=== PATIENT | female | born 1995 | race Caucasian/White ===

== ENCOUNTER 2023-11-25 22:31 | Emergency (ER) | payer SELFPAY ==
[~2023-11-25] VITALS: Ht 142.2 cm; Wt 63.2 kg
[2023-11-25 22:52] VITALS: O2SAT 100
[2023-11-25] MEDS: ACETAMINOPHEN 325MG TABLET PO ONE (23:21)
[2023-11-25] MEDS: SODIUM CHLORIDE 0.9% 1000ML BAG (SEPSIS BOLUS) IV ONE (23:22)
[2023-11-25 23:40] LABS: BASOPHILS % 0.4 % (0.0-2.0); EOSINOPHILS % 0.1 % (0.0-5.0); HEMATOCRIT. 37.5 % (36.0-48.0); HEMOGLOBIN. 12.6 g/dL (12.0-16.0); LYMPHOCYTES % 16.7 % (20.0-50.0); MEAN CORPUSCULAR HEMOGLOBIN 28.1 pg (28.0-32.0); MEAN CORPUSCULAR HGB CONC 33.5 g/dL (31.0-37.0); MEAN CORPUSCULAR VOLUME 83.9 fL (81.0-99.0); MONOCYTES % 9.2 % (2.0-8.0); NEUTROPHILS % 73.6 % (40.0-76.0); PLATELET 265 x1000/uL (130-400); RED BLOOD CELL COUNT 4.47 mill/uL (4.2-5.4); RED CELL DISTRIBUTION WIDTH 12.8 % (11.6-14.6); WHITE BLOOD COUNT 8.7 x1000/uL (4.5-11.0)
[2023-11-25 23:49] LABS: PROTHROMBIN TIME 10.9 sec (9.6-11.0)
[2023-11-25 23:50] LABS: CLARITY URINE CLEAR (CLEAR); COLOR URINE YELLOW (YELLOW); GLUCOSE URINE NEGATIVE (NEGATIVE); KETONES URINE 1+ (NEGATIVE); LEUKOCYTE ESTERASE URINE TRACE (NEGATIVE); NITRITE URINE NEGATIVE (NEGATIVE); OCCULT BLOOD URINE NEGATIVE (NEGATIVE); PH URINE 8.5 (4.5-8.0); PROTEIN URINE NEGATIVE (NEGATIVE); SPECIFIC GRAVITY URINE 1.012 (1.005-1.030)
[2023-11-25 23:57] LABS: ALANINE AMINOTRANSFERASE 45 IU/L (10-49); ALBUMIN 4.7 g/dL (3.2-4.8); ASPARTATE AMINOTRANSFERASE 59 IU/L (<34); BILIRUBIN TOTAL 0.4 mg/dL (0.1-1.0); CARBON DIOXIDE 18 mEq/L (21-32); CHLORIDE 103 mEq/L (98-107); CREATINE KINASE 90 IU/L (34-145); CREATININE 0.6 mg/dL (0.6-1.0); GLUCOSE 91 mg/dL (70-105); POTASSIUM 3.8 mEq/L (3.5-5.1); PROTEIN TOTAL 7.6 g/dL (6.0-8.3); SODIUM 133 mEq/L (136-145)
[2023-11-26 00:01] LABS: TROPONIN I HIGH SENSITIVITY < 4 ng/L (3.0-34); UREA NITROGEN BLOOD < 5 mg/dL (9-23)
[2023-11-26 00:37] LABS: ERYTHROCYTE SEDIMENTATION RATE 25 mm/hr (0-20)
[2023-11-26 00:51] LABS: SQUAMOUS EPITHELIAL CELL URINE FEW /lpf (RARE/1+)
[2023-11-26 00:58] LABS: RBC URINE 0-2 /hpf (0-2)
[2023-11-26 01:10] LABS: BACTERIA URINE NONE SEEN
[2023-11-26 01:11] VITALS: BP 106/56; PULSE 113; RESP 21; TEMP 101.3
[2023-11-26] MEDS: OSELTAMIVIR 75MG CAPSULE PO ONE (01:25)
[2023-11-26] MEDS ORDERED: TAM75 MT (02:02)
[2023-11-26] MEDS ORDERED: TOPUD MT (02:02)
[2023-11-26] MEDS ORDERED: ACETAMINOPHEN 325MG TABLET PO ONE (02:15)
== END 2023-11-27 02:00 | disposition home or self-care (01) ==
LOC: ER 22:31
DX: O98.511 Other viral diseases complicating pregnancy, first trimester (principal); Z3A.13 13 weeks gestation of pregnancy; Z20.822 Contact with and (suspected) exposure to COVID-19
CPT/HCPCS: 99285; 96360; 87426; 80053; 81003; 81025; 82550; 87430; 83880; 83605; 85025; 85610; 85651; 87040; 87086; 84484; 87070; 87804 ×2; 36415; 84145; 93005; 76801; 71045; J7030